=== PATIENT | male | born 1995 | race African-American/Black ===

== ENCOUNTER 2019-12-31 04:12 | Emergency (ER) | payer SELFPAY ==
[~2019-12-31] VITALS: Ht 175.3 cm; Wt 111.4 kg
[2019-12-31 04:24] VITALS: BP 144/86; PULSE 86; TEMP 98.6
[2019-12-31] MEDS ORDERED: PROVENTIL0.09 MG/A1 IH (04:24)
== END 2019-12-31 04:55 | disposition home or self-care (01) ==
LOC: COL.ER 04:12
DX: J45.909 Unspecified asthma, uncomplicated (principal); Z91.14 Patient's other noncompliance with medication regimen; F17.220 Nicotine dependence, chewing tobacco, uncomplicated

== ENCOUNTER 2020-01-07 09:53 | Emergency (ER) | payer SELFPAY ==
[~2020-01-07] VITALS: Ht 172.7 cm; Wt 115.9 kg
[~2020-01-07 09:53] MED LIST: PROVENTIL0.09 MG/A1 IH
[2020-01-07 10:00] VITALS: BP 135/62; PULSE 94; TEMP 98.1
== END 2020-01-07 10:45 | disposition home or self-care (01) ==
LOC: COL.ER 09:53
DX: J45.901 Unspecified asthma with (acute) exacerbation (principal)
CPT/HCPCS: J8540

== ENCOUNTER 2020-01-26 08:48 | Emergency (ER) | payer SELFPAY ==
[~2020-01-26] VITALS: Ht 172.7 cm; Wt 115.9 kg
[2020-01-26 08:53] VITALS: TEMP 96.4
[2020-01-26] MEDS ORDERED: VENTOLIN0.09 MG IH (09:11)
[2020-01-26] MEDS ORDERED: PREDNISONE20 MG PO (09:11)
[2020-01-26 10:49] VITALS: BP 136/74; PULSE 91
== END 2020-01-26 10:49 | disposition home or self-care (01) ==
LOC: COL.ER 08:48
DX: J45.901 Unspecified asthma with (acute) exacerbation (principal)
CPT/HCPCS: J8540

== ENCOUNTER 2020-04-04 20:24 | Emergency (ER) | payer SELFPAY ==
[~2020-04-04] VITALS: Ht 175.3 cm; Wt 113.6 kg
[~2020-04-04 20:24] MED LIST changes: +PREDNISONE20 MG PO; +VENTOLIN0.09 MG IH
[2020-04-04 20:32] VITALS: BP 124/84; TEMP 97.8
[2020-04-04 21:07] VITALS: PULSE 73
== END 2020-04-04 21:07 | disposition home or self-care (01) ==
LOC: COL.ER 20:24
DX: Z76.0 Encounter for issue of repeat prescription (principal); J45.909 Unspecified asthma, uncomplicated; F17.210 Nicotine dependence, cigarettes, uncomplicated

== ENCOUNTER 2020-05-25 00:35 | Emergency (ER) | payer SELFPAY ==
[~2020-05-25] VITALS: Ht 170.2 cm; Wt 113.6 kg
[2020-05-25 00:40] VITALS: TEMP 97.6
[2020-05-25 01:57] VITALS: BP 115/75; PULSE 74
== END 2020-05-25 01:57 | disposition home or self-care (01) ==
LOC: COL.ER 00:35
DX: J45.901 Unspecified asthma with (acute) exacerbation (principal); F17.210 Nicotine dependence, cigarettes, uncomplicated
CPT/HCPCS: J8540

== ENCOUNTER 2020-06-10 03:20 | Emergency (ER) | payer SELFPAY ==
[~2020-06-10] VITALS: Ht 167.6 cm; Wt 111.4 kg
[2020-06-10 03:29] VITALS: BP 118/77; PULSE 64; TEMP 97.5
== END 2020-06-10 04:58 | disposition home or self-care (01) ==
LOC: COL.ER 03:20
DX: J45.901 Unspecified asthma with (acute) exacerbation (principal)
CPT/HCPCS: J8540